=== PATIENT | female | born 1940 | race Caucasian/White ===

== ENCOUNTER 2016-09-20 12:08 | Outpatient (CLI) | payer MEDICARE, BC ==
[~2016-09-20] VITALS: Ht 157.5 cm; Wt 50.4 kg
--- NOTE | ~2016-09-20 | OR ---
PATIENT'S NAME: JAYSON BROWN [facility] AGE: 76 Y [address] ROOM: [id number] [place], [place] [address] LOCATION: GPCU ADMIT DATE: 09/20/2016 OR/Procedure Report DISCHARGE DATE: 09/20/2016 FAMILY PHYSICIAN: Cam Portillo MD ATTENDING PHYSICIAN: Ez Vergara SURGEON: Ez Vergara MD INSPECTOR MATERIAL DISPOSITION: DATE OF PROCEDURE: 09/20/2016 PREOPERATIVE DIAGNOSIS: Severe life-limiting claudication of both lower extremities. PROCEDURE: Aortogram with bilateral lower extremity runoff. SFA and popliteal atherectomy and balloon angioplasty with drug-coated balloon on the right. CAT DRIVER: laborer electroplating staff. ESTIMATED BLOOD LOSS: 25 mL. OPERATIVE FINDINGS: Complete occlusion of the right SFA which was recanalized at the end of case. DESCRIPTION OF PROCEDURE: The patient was brought to the labor and employment paralegal and placed supine on the labor and employment paralegal table, prepped and draped in a sterile manner. Preoperative time-out was performed. The patient received preoperative antibiotics. We gained access via the left groin. We used ultrasound guidance followed by infusion of local anesthetic. We then used a micropuncture kit to gain access to the common femoral artery, exchanged using Seldinger technique for a 5-Sinhala short sheath. We went up in the aorta using 0.035 Glidewire and Omni Flush catheter and performed an aortogram, showed patent renal vessels, distal aorta, common and external iliac, as well as internal iliac arteries. We went up and over the aortic bifurcation, parked our catheter in the common femoral on the right and we performed an angiogram of the right lower extremity. This showed a complete occlusion of the distal SFA popliteal region with recanalization of the distal popliteal with patent TP trunk with peroneal and posterior tibial vessels patent with an occluded anterior tibial. We exchanged over [employer] Torque wire for a 6-Sinhala Destination sheath. We gave 5000 units of heparin which was reversed with protamine at the end of case. We were able to cross the lesion with an 0.035 Glidewire as well as a TrailBlazer catheter. We then exchanged for a #5 Spider device to protect from embolism. We then used a TurboHawk device to perform an atherectomy of the SFA popliteal region removing significant amount of plaque burden. We then balloon angioplastied with 5 x 120 and then a 5 x 60 drug-eluting balloon with complete recanalization of the SFA. After PATIENT'S NAME: JAYSON BROWN [facility] AGE: 76 Y [address] ROOM: [id number] [place] [address] LOCATION: [facility] ADMIT DATE: 09/20/2016 OR/Procedure Report DISCHARGE DATE: 09/20/2016 FAMILY PHYSICIAN: Cam Portillo MD ATTENDING PHYSICIAN: Ez Vergara completing the angioplasty of the SFA, we brought our sheath back to the common femoral on the left. We performed an angiogram of the left lower extremity showing a high-grade left superficial femoral artery stenosis and then a similar occlusion of the anterior tibia, but both PT and peroneal runoff. Sheath was removed. Pressure was held for 15 minutes. Protamine was used to reverse the heparin. The patient tolerated the procedure well, will come back for left SFA angioplasty at a later date. EZ VERGARA MD FKM/modl /[id number] d: 09/20/16 2313 t: 09/24/16 1042, OPERATIVE SUMMARY
[~2016-09-20 12:08] MED LIST: BENTYL10 MG PO; LOMOTIL 2.5-0.1 EACH PO; NORVASC2.5 MG PO; PHENOBARBITAL16.2 MG PO; TENORMIN50 MG PO; VITAMIN B-121000 MCG PO; WELCHOL 625MG625 MG PO
[2016-09-20 12:50] LABS: BASOPHIL # 0.1 K/uL (0.0-0.2); BASOPHIL % 0.7 %; EOSINOPHIL # 0.2 K/uL (0.0-0.5); EOSINOPHIL % 1.6 %; HEMATOCRIT 40.4 % (33.0-46.0); HEMOGLOBIN 13.2 g/dL (10.0-15.0); IMMATURE GRANULOCYTE % 0.3 %; LYMPHOCYTE # 2.6 K/uL (0.8-4.0); LYMPHOCYTE % 24.3 %; MCH 30.3 pg (27.0-34.0); MCHC 32.7 gm/dL (32.0-36.5); MCV 92.9 fl (83.0-98.0); MONOCYTE # 0.5 K/uL (0.0-1.0); MONOCYTE % 4.9 %; NEUTROPHIL # (ANC) 7.3 K/uL (1.8-7.8); NEUTROPHIL % 68.2 %; NRBC % 0 /100WBC (0-0.00); PLATELET COUNT 208 K/uL (150-450); RBC 4.35 M/uL (3.50-5.50); RDW-CV 12.9 % (11.9-14.6); WBC 10.7 K/uL (4.0-11.0)
[2016-09-20 13:07] LABS: ANION GAP 12.8 (10.0-19.0); CALCIUM 9.3 mg/dL (8.5-10.5); POTASSIUM 3.8 mMol/L (3.7-5.1); TOTAL BILIRUBIN 0.6 mg/dL (0.0-1.5); TOTAL PROTEIN 7.1 g/dL (6.0-8.4)
[2016-09-20] MEDS ORDERED: PLAVIX75 MG PO (17:37)
== END 2016-09-20 21:10 | disposition disaster alternative care site (69) ==
LOC: GCAT 12:08 → GPCU 12:08 → GCAT 21:10
PROVIDERS: Surgery Vascular Surgery
PROC: B41G1ZZ Fluoroscopy of Left Lower Extremity Arteries using Low Osmolar Contrast (ICD-10-PCS; principal; 2016-09-20)
PROC: B41F1ZZ Fluoroscopy of Right Lower Extremity Arteries using Low Osmolar Contrast (ICD-10-PCS; principal; 2016-09-20)
PROC: 04CM3ZZ Extirpation of Matter from Right Popliteal Artery, Percutaneous Approach (ICD-10-PCS; principal; 2016-09-20)
PROC: B4101ZZ Fluoroscopy of Abdominal Aorta using Low Osmolar Contrast (ICD-10-PCS; principal; 2016-09-20)
DX: I70.213 Atherosclerosis of native arteries of extremities with intermittent claudication, bilateral legs (principal); K91.1 Postgastric surgery syndromes; E78.5 Hyperlipidemia, unspecified; G62.9 Polyneuropathy, unspecified; I10 Essential (primary) hypertension; K21.9 Gastro-esophageal reflux disease without esophagitis; Z90.3 Acquired absence of stomach [part of]; Z79.899 Other long term (current) drug therapy
CPT/HCPCS: C1714; C1725; C1769; C1884; C1887; J1644; J2001; J2250; J2720; J3010; J7030

== ENCOUNTER 2016-09-27 11:59 | Inpatient (IN) | payer MEDICARE, BC ==
[~2016-09-27] VITALS: Ht 157.5 cm; Wt 54.5 kg
--- NOTE | ~2016-09-27 | CON ---
[facility] 76 [facility] [address] ROOM: [place] [address] [facility] ADMIT DATE: 09/27/2016 Consultation DISCHARGE DATE: FAMILY PHYSICIAN: Cam Portillo MD ATTENDING PHYSICIAN: EZ VERGARA REFERRING PHYSICIAN: SIL MACHADO MD CHIEF COMPLAINT: Chest pain. HISTORY OF PRESENT ILLNESS: A 76-year-old lady with a past medical history of severe peripheral arterial disease, status post bilateral superficial femoral as well as popliteal atherectomy, the left one done today on 09/27/2016, the right one done on 09/20/2016, underwent this procedure today; and postoperatively, she did develop some chest pressure, which was located in the back of her shoulder and then radiated to the front-side without radiation to the shoulders, felt like somebody sitting on her chest, associated with nausea, anxiety as well as upset stomach and lasted 5 minutes and went away on its own. On further inquiry, she denied having any PND, leg swelling, or orthopnea. She had been battling with the stomach issues, which does sound like IBS and underwent subtotal gastrectomy back in 1976 and again stomach reconstruction done in 2005. She gets bouts of diarrhea in the morning everyday. She denied having any headache, any trouble with the eyes, any dizziness, any trouble swallowing, any palpitations, or any chest pain at this moment. REVIEW OF SYSTEMS: All other systems reviewed and were negative except what is mentioned in the HPI. PAST MEDICAL HISTORY: 1. Peripheral artery disease, status post bilateral SFA and popliteal atherectomy. 2. Hypertension. 3. IBS. ALLERGIES: THE PATIENT IS ALLERGIC TO PENICILLIN, SULFA, PSEUDOEPHEDRINE, METOPROLOL, CLONIDINE, LISINOPRIL, HYDROCHLOROTHIAZIDE WELL PROCAINE. CURRENT MEDICATIONS: Include: 1. Amlodipine 2.5 mg p.o. every morning. 2. Atenolol 50 mg p.o. twice daily. 3. Plavix 37.5 mg p.o. everyday. [facility] 76 [facility] [address] ROOM: [place] [address] LOCATION: GPCU ADMIT DATE: 09/27/2016 Consultation DISCHARGE DATE: FAMILY PHYSICIAN: Cam Portillo MD ATTENDING PHYSICIAN: EZ VERGARA 4. Welchol tablets 625-1250 mg p.o. every morning. 5. Cyanocobalamin 1000 mcg p.o. every 14 days. 6. Dicyclomine 10 mg p.o. 3 times daily p.r.n. 7. Lomotil 2 tablets p.o. everyday p.r.n. 8. Phenobarbital 16.25 mg p.o. everyday p.r.n. SOCIAL HISTORY: Never a smoker. No alcohol or drug abuse. FAMILY HISTORY: Family history significant for diabetes as well as severe vascular disease in dad. PHYSICAL EXAMINATION: VITAL SIGNS: 132/78, 16, afebrile, and 72. GENERAL: In no acute distress. Alert, oriented x3. HEENT: Head: Atraumatic, normocephalic. Eyes: Nonicteric. No pallor. Oropharynx dry mucous membranes. CARDIOVASCULAR: S1 and S2. No murmurs, gallops, or rubs. LUNGS: Clear to auscultation bilaterally. ABDOMEN: Soft, nontender, nondistended. Bowel sounds present. EXTREMITIES: No clubbing, cyanosis, or edema. PSYCH: Normal affect, mood, and speech. NEURO: Cranial nerves 2 through 12 intact. No motor or sensory deficit. MUSCULOSKELETAL: No muscle tenderness or joint swelling noted. LABORATORY DATA: EKG was reviewed, which did reveal ST-depression in anterior as well as inferior leads. Troponin first set was negative. On the BMP, she was found to be hypokalemic with a potassium of 3.6. ASSESSMENT: 1. Uaf-TG-fnvodri elevation myocardial infarction. 2. Peripheral arterial disease. 3. Hypertension. 4. Hypokalemia. 5. Irritable bowel syndrome. PLAN: At this time, we would recommend aspirin, Plavix, beta-rivera, as well as statin. Regarding the dose of statin, it was discussed with the patient, and she agreed to take 1 dose of Lipitor and see how does it affect her bowels because she is very concerned about her bowel movements. Cardiology have already been consulted and agree with that. Based on her troponin levels or chest pain, decision to do a Lexiscan or cath will be contemplated in the PATIENT'S NAME: JAYSON BROWN [facility] AGE: 76 Y [address] ROOM: [place] [address] [facility] ADMIT DATE: 09/27/2016 Consultation DISCHARGE DATE: FAMILY PHYSICIAN: Cam Portillo MD ATTENDING PHYSICIAN: EZ VERGARA morning. Given that she got contrast last week and today as well, we will hydrate her for a potential cath in the morning. Potassium will be replaced. We are going to continue her home Bentyl and other medications. N.p.o. midnight. Thank you for involving us in the care of this patient. MD JUAN ST/radha /[id number] d: 09/28/16 0005 t: 09/29/16 0903, CONSULTATION REPORT
--- NOTE | ~2016-09-27 | CON ---
PATIENT'S NAME: JAYSON BROWN [facility] AGE: 76 Y [address] ROOM: [id number] [place], [place] [address] LOCATION: GPCU ADMIT DATE: 09/27/2016 Consultation DISCHARGE DATE: 10/05/2016 FAMILY PHYSICIAN: Cam Portillo MD ATTENDING PHYSICIAN: Radha Angel DATE OF CONSULTATION: 09/30/2016 REFERRING PHYSICIAN: Keenan Lucio MD REQUESTING PHYSICIAN: Dr. Lucio. REASON FOR CONSULTATION: Multivessel coronary artery disease. HISTORY OF PRESENT ILLNESS: The patient is a very pleasant 76-year-old white female with known severe peripheral vascular disease, who was undergoing an outpatient procedure with Dr. De La Cruz consisting of the left lower extremity angiogram SFA with angioplasty, who had a sudden new onset episode of atrial fibrillation with rapid ventricular response. She was experiencing chest pressure/pain. She was admitted. She was seen by Cardiology. She converted to normal sinus rhythm in a fairly quick manner but then subsequently had a 5-second pause. Dr. Lucio evaluated the patient's EKG and she was found to be in a setting of a recent non-STEMI myocardial infarction. She underwent a catheterization study with Dr. Lucio on 09/29/2016. Findings were for proximal right coronary artery disease at 75% in the midportion followed by a distal occlusion at 70%. There was no identified left main disease that was significant. To the LAD is 70%-80% stenosis. On the same marginal at 75% and a second marginal at 70%. The patient underwent an echocardiogram with an ejection fraction noted at 60% and no valvular defects noted. Given the findings, Dr. Lucio asked Dr. Espinoza to see the patient in consultation for surgical revascularization. PAST MEDICAL HISTORY: Illnesses: Irritable bowel syndrome, severe peripheral vascular disease, peripheral neuropathy, osteoarthritis, GERD, dumping syndrome, bleeding ulcers/GI bleed, hypertension, dyslipidemia. Surgeries/procedures: Stomach reconstruction surgery, right SFA angiogram, bilateral cataract surgery, bilateral blepharoplasty, right carpal tunnel surgery, appendectomy, cholecystectomy, subtotal gastrectomy, total abdominal hysterectomy, breast biopsy, popliteal arthrectomy. ALLERGIES: PENICILLIN, SULFA, PSEUDOEPHEDRINE, METOPROLOL, CLONIDINE, LISINOPRIL PATIENT'S NAME: JAYSON BROWN [facility] AGE: 76 Y [address] ROOM: [id number] [place], [place] [address] LOCATION: GPCU ADMIT DATE: 09/27/2016 Consultation DISCHARGE DATE: 10/05/2016 FAMILY PHYSICIAN: Cam Portillo MD ATTENDING PHYSICIAN: Radha Angel HYDROCHLOROTHIAZIDE, AND PROCAINE. IT SOUNDS LIKE MOST OF THESE ARE INTOLERANCES RATHER THAN TRUE ALLERGIES, HOWEVER, IT IS DIFFICULT TO PIN DOWN THE TRUE PROBLEM. SOCIAL HISTORY: The patient is . She and her reside in [place], [place]. She has grown children. She is a lifetime nonsmoker and non-alcohol consumer. She is retired as an office nurse. FAMILY HISTORY: Significant for both coronary artery disease and peripheral vascular disease. MEDICATIONS: 1. Amlodipine 2.5 mg daily. 2. Atenolol 50 mg daily. 3. Plavix 37.5 mg daily. 4. Welchol 625 to 1250 mg daily. 5. Cyanocobalamin 1000 mcg p.o. every 14 days. 6. Dicyclomine 10 mg p.o. up to three times a day/p.r.n. 7. Lomotil 2 tablets p.o. daily/p.r.n. 8. Phenobarbital 16.25 mg p.o. daily/p.r.n. SYSTEM REVIEW: A 10-point review of systems was reviewed and negative other than the pertinent positives as per HPI. PHYSICAL EXAMINATION: VITAL SIGNS: Blood pressure 166/80, pulse is 68, respirations 16, O2 saturations 92% on room air. Height is 157.48 cm. Weight is 52.1 kg. GENERAL: She is very pleasant. She is in no acute distress. HEENT: Normocephalic with EOMIs intact. Conjunctivae clear. NECK: Trachea midline with no palpable lymphadenopathy or thyromegaly. LUNGS: Clear to auscultation on the anterior bilaterally. CARDIOVASCULAR: Regular rate and rhythm. ABDOMEN: Soft, nontender by 4 quadrants with positive bowel sounds throughout. EXTREMITIES: No overt varicosities or edema. MUSCULOSKELETAL: Good range of motion to bilateral upper and lower extremities. NEUROLOGIC: Alert and oriented x3. SKIN: No suspicious skin lesions. LAB AND TEST RESULTS: Per HPI. PATIENT'S NAME: JAYSON BROWN [facility] AGE: 76 Y [address] ROOM: [id number] [place] [address] LOCATION: GPCU ADMIT DATE: 09/27/2016 Consultation DISCHARGE DATE: 10/05/2016 FAMILY PHYSICIAN: Cam Portillo MD ATTENDING PHYSICIAN: Radha Angel IMPRESSION: 1. Multivessel coronary artery disease. 2. Recent ncm-ZI-[id number] myocardial infarction. 3. Severe peripheral vascular disease. 4. Severe irritable bowel syndrome. Dr. Espinoza spoke to the patient and her family with regard to surgical revascularization. Risks and benefits of the procedure were discussed. Discussion of the risks includes, but were not limited to, bleeding, requiring transfusion, return to the operative suite, myocardial infarction, cerebrovascular accident, renal and/or pulmonary failure. Also, discussed were arrhythmias, infection, as well as operative and postoperative mortality. Per the review of the catheterization films, the patient will require 4 vessels, this to the RCA, LAD, and cuff marginals. The patient is significantly worried about the lack of control from her bowels and how this may affect her surgery. At this point, we will plan on placing a Flexi-Seal prior to the patient going down to the operative suite as to relieve her worry with regard to the bowels. The patient's questions have been asked and answered to her satisfaction. We would like to thank Dr. Lucio for allowing us to participate in the care of this very pleasant woman. ANIYA BOJORQUEZ APRN FOR [place] ESPINOZA, DO CHARLESQ/modl /[id number] d: 10/06/16 1848 t: 10/10/16 1234, CONSULTATION REPORT
--- NOTE | ~2016-09-27 | DS ---
PATIENT'S NAME: JAYSON BROWN [facility] AGE: 76 Y [address] ROOM: [address] [place], [place] [address] LOCATION: GPCU ADMIT DATE: 09/27/2016 Discharge Summary DISCHARGE DATE: 10/05/2016 FAMILY PHYSICIAN: Cam Portillo MD ATTENDING PHYSICIAN: Radha Angel [facility] COURSE: The patient is a 76-year-old white female, who was undergoing an outpatient procedure with Dr. De La Cruz on September 27, 2016, consisting of a left lower extremity angiogram and SFA angioplasty secondary to severe claudication of the left lower extremity. The procedure was successful; however, at the conclusion of the procedure, the patient developed chest pain and went into new onset atrial fibrillation with rapid ventricular response as well as a 5-second sinus pause. She was admitted and evaluated by Cardiology. It seems she had a recent non-STEMI myocardial infarction for which she was not aware. She underwent cardiac catheterization. The patient was seen in consultation for coronary artery bypass grafting and on September 30, 2016, underwent coronary artery bypass grafting x4 vessels consisting of a left internal mammary artery bypass to the LAD, reverse saphenous vein graft bypass to the posterior descending artery, reverse saphenous vein graft bypass to the posterior lateral septal branch, and a reverse saphenous vein graft to the obtuse marginal. The patient tolerated the surgery without complication and transferred up to the ICU postoperatively. She remained intubated for a short period postop, but did extubate without complication on the same operative day. On postoperative day 1, the patient was found stable to transfer to the progressive care floor; therefore, her lines and drips were discontinued. She was started on Epogen and iron for acute blood loss anemia. The patient remained on aspirin and Plavix given her peripheral vascular disease and recent coronary artery bypass grafting. The patient does have a significant history of irritable bowel syndrome with previous surgery, previous dumping syndrome. The patient is refusing to take aspirin. We have had multiple disciplines speak to her with regard to this. 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 The patient's chest tubes, pacemaking wires, and Leo catheter were discontinued in the routine postoperative timeframe. The patient did not have any complications with postoperative atrial fibrillation. Her pain was well managed throughout the hospital stay. She continued to follow with Cardiology, Vascular Surgery, Hospitalist Services, and cardiothoracic Surgery until appropriate for discharge to home. The patient worked with Care Management for options for discharge. The patient did not require a skilled stay nor did she desire home health care services at the time of discharge. She was managing quite well with ambulation, and by 10/05/2016, she was discharged to home. DISCHARGE ORDERS: Include a cardiac prudent diet. Activity levels as per the open heart surgery discharge summary sheet, which require no pulling, pushing, PATIENT'S NAME: JAYSON BROWN [facility] AGE: 76 Y [address] ROOM: [place] [address] LOCATION: GPCU ADMIT DATE: 09/27/2016 Discharge Summary DISCHARGE DATE: 10/05/2016 FAMILY PHYSICIAN: Cam Portillo MD ATTENDING PHYSICIAN: Radha Angel or lifting greater than 10 pounds for the next 6 weeks or until November 11, 2016. She may shower. She will begin cardiac rehab and outpatient therapy. The patient is to follow with Dr. Lucio, Dr. De La Cruz, and Dr. Espinoza in 2 weeks on the same day, and we will arrange. She is to follow up with the primary care provider, Dr. Portillo in 4 weeks. FINAL DIAGNOSES: Include, 1. Coronary artery disease, non-ST segment myocardial infarction. 2. Severe peripheral vascular disease. 3. Atrial fibrillation with rapid ventricular response. 4. History of dumping syndrome. 5. Irritable bowel syndrome. DISCHARGE MEDICATIONS: 1. Atenolol 50 mg b.i.d. 2. Welchol 625 to 1250 mg daily. 3. Vitamin B12 of 1000 mcg every 14 days. 4. Lomotil 2 tablets every day p.r.n. diarrhea. 5. Bentyl 10 mg t.i.d./p.r.n. diarrhea. 6. Phenobarbital mg oral tablets as needed p.r.n. diarrhea. 7. Norvasc 2.5 mg daily. 8. Plavix 75 mg daily. 9. Amiodarone 200 mg twice a day. 10. Lipitor 20 mg at bedtime. 11. Aspirin 81 mg daily. 12. Iron 325 mg twice a day. 13. Lasix 40 mg daily. 14. Potassium chloride 10 mEq 2 tablets twice a day. 15. [place] 5/325, 1 to 2 every 4 to 6 hours as needed. The patient and spouse verbalized understanding of the discharge orders. The patient discharged to home in stable condition. ANIYA BOJORQUEZ APRN FOR [place] ESPINOZA DO DLQ/modl /[id number] d: 10/22/16 0645 t: 10/24/16 1532, DISCHARGE SUMMARY
--- NOTE | ~2016-09-27 | CON ---
[facility] AGE[facility] 76 Y [address] ROOM: [place] [address] LOCATION: GPCU ADMIT DATE: 09/27/2016 Consultation DISCHARGE DATE: FAMILY PHYSICIAN: Cam Portillo MD ATTENDING PHYSICIAN: JUVENCIO DE LA CRUZ DATE OF CONSULTATION: 09/27/2016 REFERRING PHYSICIAN: SIL MACHADO MD CARDIOLOGY CONSULTATION REASON FOR CARDIOLOGY CONSULTATION: Chest pain and new-onset atrial fibrillation. HISTORY OF PRESENT ILLNESS: This is a 76-year-old female admitted as an outpatient for Dr. De La Cruz for an angiogram of the left SFA. During her procedure, she had a new onset of atrial fibrillation with controlled ventricular rate with a max rate of about 100. She did subsequently convert back to a sinus rhythm shortly after the initial atrial fibrillation, but did convert with a 5-second sinus pause which did correlate with some intense chest pain and pressure which she describes as a "bubble." She states the pain radiated from her back and was a very unfamiliar symptom. A 12-lead EKG evaluation during her chest pain episode showed ST depressions of 1 mm in leads V2 through V6. She denies any presyncope or syncope. She also denies palpitations, nausea or vomiting or diaphoresis. At the time of her physical evaluation, her symptoms have resolved and she has no further complaints at this time. She does have an extensive health history of gastric difficulties including GI bleeding. She was diagnosed with a gastric dumping syndrome and has had stomach reconstruction. Also of note, she has extensive peripheral vascular disease and has had an angiogram to her right SFA already with Dr. De La Cruz, and once again is here today for a left SFA angiogram. PAST MEDICAL HISTORY: 1. Hypertension. 2. Hyperlipidemia. 3. Peripheral vascular disease. 4. Peripheral neuropathy. 5. Gastric dumping syndrome. 6. Colitis and gastritis. 7. GERD. PAST SURGICAL HISTORY: 1. Stomach reconstruction. 2. Cataract surgery. PATIENT'S NAME: [facility] AGE: 76 Y [address] ROOM: [place] [address] LOCATION: GPCU ADMIT DATE: 09/27/2016 Consultation DISCHARGE DATE: FAMILY PHYSICIAN: Cam Portillo MD ATTENDING PHYSICIAN: JUVENCIO DE LA CRUZ 3. Subtotal gastrectomy. 4. Breast biopsy. 5. Total hysterectomy. 6. Cholecystectomy. 7. Appendectomy. 8. Carpal tunnel surgery. FAMILY HISTORY: She states there is some cardiac disease in her family, but is unsure of the full details. SOCIAL HISTORY: The patient denies ever using tobacco. She also denies alcohol or illicit drug use. CURRENT MEDICATIONS: 1. Tenormin 50 mg p.o. twice daily. 2. Lipitor 40 mg p.o. x1 now. MEDICATION ALLERGIES: 1. Penicillin. 2. Sulfa causing headache. 3. Lisinopril, stating "just did not work.". 4. Pseudoephedrine causing tachycardia. 5. Hydrochlorothiazide. 6. Metoprolol causing nightmares. 7. Clonidine causing trouble swallowing and "cotton mouth.". 8. Novocain causing tachycardia during dental work. REVIEW OF SYSTEMS: Pertinent positives listed in the HPI. All other review of systems are evaluated and negative. LABORATORY DATA AND IMAGING STUDIES: Diagnostics: CMS evaluation shows a sodium of 142, potassium 3.6, BUN of 17, creatinine 0.9, and glucose of 96. Cardiac enzyme evaluation shows a CPK of 48, CK-MB of 0.9, and troponin I of less than 0.04. PHYSICAL EXAMINATION: VITAL SIGNS: Temperature 96.9, pulse 74, respirations 16, blood pressure 108/56, and O2 saturation 92% on 2 L nasal cannula. The patient weighs 52.1 kg. SKIN: [place], warm, and dry. EYES: Sclerae clear. No xanthelasmas. ENT: Oral mucosa is pink and moist. No jugular venous distention or carotid PATIENT'S NAME: JAYSON BROWN [facility] AGE: 76 Y [address] ROOM: [address] [address] [facility] ADMIT DATE: 09/27/2016 Consultation DISCHARGE DATE: FAMILY PHYSICIAN: Cam Portillo MD ATTENDING PHYSICIAN: JUVENCIO DE LA CRUZ bruits. CHEST: Respirations are even and unlabored. LUNGS: Clear to auscultation. HEART: Regular rate and rhythm. Normal S1 and S2. No murmurs, rubs, or gallops. ABDOMEN: Soft and nontender. MUSCULOSKELETAL: Gait is normal. EXTREMITIES: Peripheral pulses palpable. No clubbing, cyanosis, or edema. PSYCHIATRIC: Alert and oriented. Mood and affect are appropriate. IMPRESSION AND PLAN: Per Dr. Machado: 1. Episode of new-onset paroxysmal atrial fibrillation followed by a sinus pause and subsequent conversion to a sinus rhythm. During her pause on conversion to sinus rhythm, she did also have complaints of chest pain which she describes as "bubble" type pressure. 2. Peripheral vascular disease. 3. History of recurrent gastrointestinal bleed. 4. Chest pain. Once again, this is a 76-year-old female, who had a left lower extremity angiogram followed by a brief episode of atrial fibrillation with subsequent ST depressions on EKG during an episode of sinus pause and chest pain. Max pause per telemetry shows about 5 seconds. She did spontaneously convert back to sinus rhythm and has had no recurrent since. She is normally physically active at home. We will continue to trend her cardiac enzymes and get a 2D echocardiogram to fully evaluate her ejection fraction as well as to look for wall motion or valvular abnormalities. We will also plan to proceed with a Lexiscan stress test to fully evaluate myocardial perfusion imaging if her cardiac enzymes remain negative overnight. We will not start her on aspirin due to her history of gastrointestinal bleeding. We will continue to monitor, evaluate, and treat as appropriate. Thank you Dr. Juvencio De La Cruz for this consult. Thank you for allowing [facility] to interact in the care of this patient. HELENA AIKEN APRN FOR MD LAMBERTO COLINDRES/radha PATIENT'S NAME: JAYSON BROWN [facility] AGE: 76 Y [address] ROOM: [id number] [place] [id number] LOCATION: GPCU ADMIT DATE: 09/27/2016 Consultation DISCHARGE DATE: FAMILY PHYSICIAN: Cam Portillo MD ATTENDING PHYSICIAN: JUVENCIO DE LA CRUZ /[id number] d: 09/28/16 1542 t: 10/31/16916, CONSULTATION REPORT
--- NOTE | ~2016-09-27 | ESTC ---
Cardiac Perfusion Imaging Demographics Patient Name KEVIN Toney Gender Female Patient Number [id number] Race Visit Number [id number] Ethnicity Corporate ID Room Number G6335 Accession Number [id number] Height 62 inches Date of 1940 Weight 114.9 pounds Sheldon Canales Star Machado Date of study 09/28/2016 Physician Keenan Supervising /ANIKA PEREZ Technologist Lin Hussein Ordering Physician Naveed Stress Roclaribel Hussein radiation technician RDCS, RVT Stress ECG Reading Naveed Nurse Abhilash Schmidt Physician Keenan Procedure Admit Source:Other. Procedure Type: Nuclear Stress Test:Pharmacological, Lexiscan, Cardiolite Stress Test Procedure Start time: 09/28/2016 08:00 Indications: Chest pain. Risk Factors The patient risk factors include:peripheral arterial disease, treated hypercholesterolemia, treated hypertension, family history of premature CAD appeared at age 71 and dyslipidemia. Conclusions Summary Perfusion Images: The overall quality of the study is fair, due to gastrointestinal tracer uptake. Left ventricular cavity is noted to be normal on the stress and rest studies. TID ratio is 1.14 Stress SPECT images and Rest SPECT images demonstrate homogenous tracer distribution throughout the myocardium except for small size moderate decrease uptake in the area involving the basal septal wall consistent with ischemia. Gated SPECT imaging reveals normal myocardial thickening and wall motion. The left ventricular ejection fraction was calculated to be >70%. Impression ECG portion of the stress test is clinically positive for ischemia by diagnostic criteria. The images reveal a small size moderate severity reversible defect in the basal septal wall consistent with ischemia . Overall left ventricular systolic function was normal. This is a intermediate to high risk stress test due to significant EKG changes with regadenoson. Clinical correlation is recommended Stress Protocols Resting ECG SR at 65 bpm Pre-stress physical exam: Patient assessed by Dr Machado prior to testing. Stress Protocol:Pharmacologic Peak HR:104 bpm HR/BP product:[id number] Peak BP:185/73 mmHg Predicted HR: 144 bpm % of predicted HR: 72 Test duration: 05:00 min Reason for termination:Infusion complete ECG Findings ST depression with T wave inversion inferior and anterolateral leads. EKG changes persisted for over 5 minutes Arrhythmias None Symptoms Chest tightness Stress Interpretation ECG portion of stress test is positive for ischemia by diagnostic criteria. Patient was notified of the results Imaging Results Applied corrections - Motion correction applied High risk findings Summed scores - Summed stress score: 7 - Summed rest score: 6 - Summed difference score: 1 Stress ejection Ejection fraction:83 % EDV :66 ml ESV :11 ml Stroke volume :55 ml LV mass :98 gr Imaging Protocols Rest Stress Isotope:Tc99m Sestamibi IV Isotope: Tc99m Sestamibi IV Isotope dose:10.1 mCi Isotope dose:31.4 mCi Date:09/28/2016 06:34 Date:09/28/2016 08:47 Technique: SPECT Technique: Gated Supine SPECT Supine IV remains in place after procedure. Scan Time:45-60 minutes post Scan Time:45-60 minutes post injection injection Procedure Medications - Regadenoson (Lexiscan) 0.4 mg IV over 10-15 sec. I.V. 0.4 mg. Medical History Admission Data Admission date: 09/27/2016 Admission Time: 15:32 Hospital Status: Inpatient. Signatures dtt: KEENAN MACHADO dtd: 09/28/16 0800 Physician Self Edit
--- NOTE | ~2016-09-27 | OR ---
PATIENT'S NAME: JAYSON VALADEZ [facility] AGE: 76 Y [address] ROOM: [address] [place] [id number] LOCATION: GPCU ADMIT DATE: 09/27/2016 OR/Procedure Report DISCHARGE DATE: 10/05/2016 FAMILY PHYSICIAN: Cam Portillo MD ATTENDING PHYSICIAN: EMILIANA SMITH SURGEON: Shon Sparks DO PRETZEL PACKER: DATE OF PROCEDURE: 09/30/2016 PREOPERATIVE DIAGNOSES: 1. Recent non ST-segment myocardial infarction with history of rapid ventricular response and atrial fibrillation. 2. Severe peripheral vascular disease, status post recent angioplasty. POSTOPERATIVE DIAGNOSES: 1. Recent non ST-segment myocardial infarction with history of rapid ventricular response and atrial fibrillation. 2. Severe peripheral vascular disease, status post recent angioplasty. PROCEDURE: Coronary artery bypass grafting x4, left internal mammary artery bypass to the LAD, reverse saphenous vein bypass of posterior descending artery, reverse saphenous vein bypass to the posterior lateral septal branch and reverse saphenous vein graft to the obtuse marginal. REFERRING PROVIDER: Keenan Lucio MD. BRIEF HISTORY: Ms Valadez is a 76-year-old white female with the above-noted diagnosis. She has been brought to the operative suite today for revascularization. DESCRIPTION OF PROCEDURE: She was sterilely prepped and draped in usual fashion for median sternotomy with lower extremity vein harvest. A sternal incision was made. The sternum was then divided at midline. Ostene and electrocautery were used for hemostasis along the narrow and sternal edges and concurrently to this saphenous vein was harvested endoscopically from the lower extremities. Mammary retractor was placed. The internal mammary artery was harvested in standard fashion utilizing surgical clips and electrocautery. Prior to its division, the patient was fully heparinized. The mammary was then divided and prepared for bypass. Mammary retractor was removed and a sternal retractor was placed. Pericardium was opened. Pericardial well created. Cannulation sutures placed in the ascending aorta and right atrium for bypass and cardioplegia cannulas, and the patient was cannulated and connected to bypass pump without difficulty. The vein was then prepared for bypass. An adequate ACT had been achieved, and cardiopulmonary bypass was now initiated and cross-clamp was applied. Antegrade and retrograde cardioplegia PATIENT'S NAME: JAYSON VALADEZ [facility] AGE: 76 Y [address] ROOM: [address] [place] [id number] LOCATION: GPCU ADMIT DATE: 09/27/2016 OR/Procedure Report DISCHARGE DATE: 10/05/2016 FAMILY PHYSICIAN: Cam Portillo MD ATTENDING PHYSICIAN: EMILIANA SMITH A was given along with topical cold saline cardiac arrest and the heart arrested without difficulty. Posterior descending artery was identified and opened. End-to-side vein graft anastomosed to this in 7-0 Prolene and then sized appropriately connected to the cardioplegia system. Another 500 mL of the vein graft and retrograde cardioplegia was given. This was done after each venous distal anastomosis. Similar venous distal anastomoses were then created to the posterior lateral septal branch and then to the obtuse marginal branch and then the left internal mammary artery was anastomosed to the left anterior descending artery, again in end-to-side fashion with 7-0 Prolene. The bulldog was removed from the mammary artery showing good distal flow down the LAD and the cross-clamp was then removed and a partial occlusion clamp applied. Warm blood was now initiated via the vein grafts and the retrograde cannula and we performed our proximal anastomosis utilizing four punch and 6-0 Prolene. With these performed, the partial occlusion clamp was removed, vein grafts de-aired, bulldog was removed, and distal flow was given. Distal sites were hemostatic. Proximal sites were hemostatic. Warm blood was now discontinued. The retrograde cannula was removed. Ventilations were initiated. Two atrial and one ventricular temporary pacemaking wires were placed and we weaned from cardiopulmonary bypass without difficulty. The venous cannula was removed and appropriate volume returned from the pump to the patient and the ascending aortic cannula was removed. Protamine was given. Copious amounts of antibiotic-infused saline was used to irrigate the sternum and mediastinum. Three chest tubes were placed, one left pleural, one posterior pericardial, one anterior mediastinal. The sternum was then approximated with ZipFix system and soft tissues were closed in a layered fashion utilizing 0 Vicryl, 2-0 Vicryl, and 4-0 Monocryl. The patient tolerated the procedure well and was transferred to the intensive care in stable condition. DO TAJ HERNANDEZ/radha /[id number] d: 10/05/16 1510 t: 10/06/16 0853, OPERATIVE SUMMARY
--- NOTE | ~2016-09-27 | CATH ---
Cardiac Diagnostic Report Demographics Patient Name KEVIN Toney Gender Female Date of 1940 Age 76 year(s) Patient Number [id number] Date of Study 09/29/2016 Visit Number [id number] Room Number G6335 [place] [id number] Ht 157.48 cm Wt 52.1 kg Referring Lindsey Avelar MD Primary Physician Physician Jeanne Mcfarland MD Performing Yerra Secondary Physician Physician Keenan Diagnostic Yerra Assisting Physician Physician Keenan Interventional Physician Mat Gauger Physician Findings and Conclusions Diagnostic Findings and Conclusion Right dominant L Main: distal 20% tapering LAD: Proximal 70%, Mid 40% stenosis Diagonal1: ostial/proximal 70% L Cx: OM1: 50-60% stenosis OM2: 80% stenosis RCA:Proximal 80%, distal 90% diffuse PDA: 40% stenosis PLV: Occluded proximally; receives collaterals from left Findings reviewed with Dr. Sparks Diagnostic Recommendations CABG recommended. Procedure Description The patient was brought to the diagnostic cardiac catheterization-EP laboratory in the fasting, non-sedated state. Informed consent was obtained in the written and verbal form after the risks and benefits were explained. The patient had no further questions and agreed to proceed. The planned puncture-incision site(s) were shaved and prepped with ChloraPrep and draped in the usual sterile manner. Conscious sedation, supplemental oxygen, and pain control medications were delivered by a registered nurse under physician guidance. Surface ECG rhythm, blood pressure measurement, and pulse oximetry were monitored throughout the procedure. Arterial access. The access site on right wrist was infiltrated with lidocaine. The vessel was entered with the Seldinger technique. A sheath was advanced into the vessel and used for catheter placement. Selective left coronary angiography. A catheter was advanced into the left coronary vessel ostium under Fluoroscopic guidance. Contrast was injected by hand. Images were obtained in multiple projections. Selective right coronary angiography. A catheter was advanced into the right coronary vessel ostium under fluoroscopic guidance. Contrast was injected by hand. Images were obtained in multiple projections. Arterial artery hemostasis was achieved. The patient was transferred to a regular nursing floor via cart accompanied by a nurse. The patient left the laboratory in stable condition. Diagnostic Cath Status: Urgent Procedure Procedure Type Diagnostic procedure:Angiography:, Coronary Angios Indications: Abnormal Stress Test and Unstable angina. The procedure was explained in detail to the patient. Risks, complications and alternative treatments were reviewed. Written consent was obtained. Medications Reviewed with Patient prior to Procedure. Angiographic Findings Dominance: Right Cardiac Arteries and Lesion Findings LMCA: Abnormal. Lesion on LMCA: Distal subsection.20% stenosis . Comments:tapering LAD: Abnormal.The 1st Diag appears abnormal. Lesion on Prox LAD: 70% stenosis . Lesion on Mid LAD: 40% stenosis . Lesion on 1st Diag: Ostial.70% stenosis . LCx: Normal (0% Stenosis).The 1st ob Marie appears abnormal. The 2nd ob Marie appears abnormal. Lesion on 1st Ob Marie% stenosis . Lesion on 2nd Ob Marie% stenosis . RCA: Abnormal. Lesion on Prox RCA: 80% stenosis .The lesion was diffuse. Lesion on Dist RCA: 90% stenosis .The lesion was diffuse. Lesion on 1st RPL: 100% stenosis . Lesion on R PDA: 40% stenosis .The lesion was diffuse. Cardiac Collaterals - collateral flow from the Dist CX to the 1st RPL. Coronary Tree Procedure Data Procedure Date Date: 09/29/2016Start: 10:25 AMEnd: 11:29 AM Entry Locations - Retrograde Percutaneous access was performed through the Right Femoral artery (Primary location). A 6 Fr sheath was inserted. Unsuccessful closure attempt was performed using: an R band. Hemostasis was successfully obtained using Mechanical Compression. Closure Comments: jarrod placed band 17 ml air. Procedure Medications Order and Administration + + + + + !Time !Medication !Dosage !Route ! + + + + + !09/29/2016 10:21 AM !Versed !0.5 mg !I.V. ! + + + + + !09/29/2016 10:22 AM !Fentanyl !25 mcg !I.V. ! + + + + + !09/29/2016 10:26 AM !Versed !0.5 mg !I.V. ! + + + + + !09/29/2016 10:30 AM !Radial Verapamil !1.25 mg !I.A. ! + + + + + !09/29/2016 10:30 AM !Radial Nitroglycerin !200 mcg !I.A. ! + + + + + !09/29/2016 10:36 AM !Heparin (ACC_3) !3000 units !I.V. bolus ! + + + + + Devices Used - A5 Fr. BS JR 4 Diag. Catheterwas used for:Was not used. - A5 Fr. BS JR 4 Diag. Catheterwas used for:Right coronary angiography. - A5 Fr. BS JL 3.5 Diag. Catheterwas used for:Left coronary angiography. Contrast Material - Isovue 53632 ml Fluoroscopy Time: Diagnostic: 4:06 minutes. Total: 4:06 minutes. Fluoroscopy Dose: Diagnostic: 519 mGy. Total: 519 mGy. Estimated Blood Loss: 10 ml. Medical History Performed Procedures and Imaging Results - Stress testing with SPECT MPIwas performed on 09/26/2016. Results were: Positive. Risk/Extent of ischemia was: Unavailable. Allergies - Penicillin. - Sulfa. - Other:(lisinopril, pseudoephedrine, metoprolol, clondine, hydrochlorothriazide). - Sulfa. - Other:(catapres). - Other:(metoprolol). - Other:(sudafed). - Penicillin. - Other:(lisinopril). - Other:(HCTZ). - Other:(lidocaine). Risk Factors The patient risk factors include:peripheral arterial disease, treated hypercholesterolemia, treated hypertension, family history of premature CAD appeared at age 71, last creatinine: 1 mg/dl, creatinine clearance: 39.36 ml/min and dyslipidemia. Admission Data Admission Date: 09/27/2016 Admission Time: 03:32 PM Admit Source: Other Insurance Payors: Medicare. Admission Medications + +------+------+ + + + + !Medication !Dosage!Times !Last !Last !Administered !Comments ! ! ! !Per !Delivery !Delivery ! ! ! ! ! !Day !Date !Time ! ! ! + +------+------+ + + + + !Aspirin ! ! ! ! !Yes ! ! !(any) ! ! ! ! ! ! ! + +------+------+ + + + + !Statin (any)! ! ! ! !Yes ! ! + +------+------+ + + + + !Beta Jose! ! ! ! !Yes ! ! !(any) ! ! ! ! ! ! ! + +------+------+ + + + + !Clopidogrel ! ! ! ! !Yes ! ! + +------+------+ + + + + Clinical Evaluation Leading to Procedure - The patient's CAD presentation was assessed as: Unstable angina. 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 Anti-anginal medications were prescribed during the past two weeks. The medication is: Beta Blockers. Hemodynamics Condition: Rest O2 Consumption: Estimated: 136.63Heart Rate: 69 bpm Pressures (mmHg) +-----+ + !Site !Pressure ! +-----+ + !AO !143/64 (99) ! +-----+ + !LV !168/-14 ,9 ! +-----+ + !AO !145/61 (94) ! +-----+ + Shunts Oxygen Values O2 Capacity 159.12 O2 Consumption 136.63 Signatures dtt: KEENAN MACHADO dtd: 09/29/16 1025 Physician Self Edit
--- NOTE | ~2016-09-27 | OR ---
PATIENT'S NAME: JAYSON BROWN [facility] AGE: 76 Y [address] ROOM: [place] [address] LOCATION: GPCU ADMIT DATE: 09/27/2016 OR/Procedure Report DISCHARGE DATE: 10/05/2016 FAMILY PHYSICIAN: Cam Portillo MD ATTENDING PHYSICIAN: Radha Angel SURGEON: Shaun Moran MD LEADED GLASS INSTALLER: DATE OF PROCEDURE: 09/30/2016 INDICATION FOR PROCEDURE: Intraoperative hemodynamic monitoring and access. PROCEDURE: After a brief time-out was completed verifying the correct patient, procedure, and site, the patient was placed in the dependent position appropriate for central line placement. The patient's right neck prepped and draped in the usual sterile fashion. Using the Seldinger technique and under real-time ultrasound guidance, a 9-Kenyan 10 cm catheter was introduced through the internal jugular vein. The guidewire then was removed. Each lumen of the catheter was evacuated from air and then flushed with sterile saline. The catheter was sutured in place. A sterile Tegaderm was applied. Next, the patient's left breast prepped and draped in the usual sterile fashion. 1 mL of 1% lidocaine to anesthetize the surrounding skin. A 20- gauge Arrow catheter was inserted into the patient's left radial artery. The guidewire then was removed. A pulsatile waveform did ensue on the monitor. The catheter then was sutured in place and sterile Tegaderm was applied. Pulses distal to the insertion of the catheter was checked and found to be adequate. The patient tolerated the above procedures well, had no procedural complications. MD GIOVANNI RENDON/radha /[id number] d: 10/05/161927 t: 10/13/16 1707, OPERATIVE SUMMARY
--- NOTE | ~2016-09-27 | ECHO ---
Transthoracic Echocardiography Report (TTE) Demographics Patient Name JAYSON BROWN Date of Study 09/28/2016 Patient Number [id number] Visit Number [id number] Date of 1940 Room Number G6335 Accession Number [id number] Gender Female Age 76 year(s) Referring Lindsey Avelar MD Online Banking Specialist Elijah Zhu Physician Sheldon Henning MD Physician Interpreting Karthikeyanuguntla Melissa Leather Carver Physician Supervising Ordering Physician Sheldon Canales MD/ANIKA DUE DILIGENCE COORDINATOR Nurse Stress Speech Communication Professor Conclusions Contractility Score Summary Normal Left Ventricular contractility was noted. Summary Normal LV/RV size and systolic function. The estimated left ventricular ejection fraction is 55%. Mild septal left ventricular hypertrophy. Mild left atrial enlargement. Diastolic assessment reveals Grade II pseudonormal diastolic function . No significant valvular abnormalities. No evidence of pericardial effusion. Procedure Type of Study TTE procedure:2D Echocardiogram, M-Mode, Doppler , Color Doppler. Procedure Date Date: 09/28/2016 Start: 01:20 PM Study Location: Inpatient Portable Technical Quality: Adequate visualization Indications:Chest pain and Abnormal ECG. Appropriate Use Criteria: 9 Patient Status: Routine HR: 72 bpm BP: 164/70 mmHg Allergies - Penicillin. - Sulfa. - Other:(lisinopril, pseudoephedrine, metoprolol, clondine, hydrochlorothriazide). - Sulfa. - Other:(catapres). - Other:(metoprolol). - Other:(sudafed). - Penicillin. - Other:(lisinopril). - Other:(HCTZ). - Other:(lidocaine). M-Mode/2D Measurements LV Diastolic Dimension: 4.04 cm LV Systolic Dimension: 3 cm LV Septum Diastolic: 1.23 cm LV PW Diastolic: 0.52 cm AO Root Dimension: 2.1 cm Cardiac Output: 4.23 l/min LA Dimension: 2.9 cm EF Estimated: 55 % LVOT: 1.8 cm LVOT VTI: 23.1 cm RV Base: 2.29 cm LV Stroke volume: 58.75 ml RV Length: 5.34 cm TAPSE: 2.51 cm TDI-S': 12.5 cm/s Doppler Measurements AV Peak Velocity: 1.36 m/s MV Peak E-Wave: 1.08 m/s AV Peak Gradient: 7.4 mmHg MV Peak A-Wave: 0.88 m/s AV Mean Gradient: 5 mmHg MV E/A Ratio: 1.22 LVOT Peak Velocity: 1.07 m/s MV P1/2t: 58 msec TR Gradient:6.76 mmHg PV Peak Velocity: 1.15 m/s Estimated RAP:8 mmHg PV Peak Gradient: 5.29 mmHg Estimated RVSP: 15 mmHg Estimated PASP: 14.76 mmHg E' Septal Velocity: 0.07 m/s A' Septal Velocity: 0.1 m/s E' Lateral Velocity: 0.09 m/s A' Lateral Velocity: 0.11 m/s Findings Left Ventricle The left ventricle is normal in size . Mild septal left ventricular hypertrophy. Diastolic assessment reveals Grade II pseudonormal diastolic function . Right Ventricle Normal right ventricle structure and function. Left Atrium Mild left atrial enlargement. Right Atrium Normal right atrial size. IVC measures 1.38 cm with inspiratory collapse. Mitral Valve Normal mitral valve structure and function. Aortic Valve The aortic valve is mildly sclerotic. Tricuspid Valve Trivial tricuspid regurgitation by color Doppler. Pulmonic Valve Normal pulmonic valve structure and function. Pericardial Effusion No evidence of pericardial effusion. Miscellaneous Visualized portions of the aortic root and ascending aorta appear normal in size. Pleural Effusion No evidence of pleural effusion. Contractility Score LV regional wall motion:(0-Non visualized 1-Normal 2-Hypokinesis 3-Akinesis 4-Dyskinesis 5-Aneurysm) Signature dtt: MELISSA RODRIGUEZ dtd: 09/28/16 1320 Physician Self Edit
--- NOTE | ~2016-09-27 | OR ---
PATIENT'S NAME: JAYSON BROWN [facility] AGE: 76 Y [address] ROOM: [address] [address] LOCATION: GPCU ADMIT DATE: 09/27/2016 OR/Procedure Report DISCHARGE DATE: FAMILY PHYSICIAN: Cam Portillo MD ATTENDING PHYSICIAN: JUVENCIO VERGARA SURGEON: Juvencio Vergara MD BEHAVIORAL ASSISTANT: DATE OF PROCEDURE: 09/27/2016 PREOPERATIVE DIAGNOSIS: Severe claudication of the left lower extremity. POSTOPERATIVE DIAGNOSIS: Severe claudication of the left lower extremity. PROCEDURE: Left lower extremity angiogram and SFA angioplasty. ZOOLOGY TEACHER: Yash. ANESTHESIA: MAC local. ESTIMATED BLOOD LOSS: 10 mL. OPERATIVE FINDINGS: Relief of the stenosis of the SFA. COMPLICATION: The patient has developed chest pain postprocedure and went into atrial fibrillation, which was new onset for her, and had to be admitted for cardiac evaluation. DESCRIPTION OF PROCEDURE: The patient was brought to laboratory technologist, placed supine on the laboratory technologist table, prepped and draped in a sterile manner. Preoperative time-out was performed. The patient received preoperative antibiotics in the form of clindamycin. We gained access via the right groin using ultrasound guidance, using micropuncture needle, followed by micropuncture wire, after infiltrating the skin with 1% lidocaine. We then exchanged using Seldinger technique for a 5-Monegasque short sheath. We went up in the aorta with a 0.035 Glidewire as well as Omni Flush catheter, went over the aortic bifurcation, parked our catheter in the common femoral artery. We then passed a Magic Torque wire through the catheter, we removed it, removed the 5-Monegasque sheath, then placed a 6-Monegasque Destination sheath. We then gave 5000 units of heparin. We then proceeded to balloon angioplasty with a 5 x 80 EverCross balloon and then completed with a 5 x 80 drug-eluting balloon. We removed the wire and the devices. We were able to deploy a 6-Monegasque Angio-Seal to close the groin. After completing the procedure, the patient then developed chest pain and required cardiac evaluation. From a peripheral standpoint, her procedure was successful. PATIENT'S NAME: JAYSON BROWN [facility] AGE: 76 Y [address] [address] LOCATION: GPCU ADMIT DATE: 09/27/2016 OR/Procedure Report DISCHARGE DATE: FAMILY PHYSICIAN: Cam Portillo MD ATTENDING PHYSICIAN: JUVENCIO VERGARA JUVENCIO VERGARA MD FKM/modl /[id number] d: 09/27/16 2329 t: 10/03/16 1508, OPERATIVE SUMMARY
--- NOTE | ~2016-09-27 | ENPV ---
Vascular Lower Extremity Vein Mapping Procedure Demographics Patient Name JAYSON BROWN Date of Study 09/29/2016 Patient Number [id number] Gender Female Date of 1940 Age 76 Visit Number [id number] Height 62 Accession Number [id number] Weight 114.86 Referring Bridger Avelar DO Interpreting Jono Henning MD Physician Lindsey Avelar MD Physician Jeanne Mcfarland MD Physician Ordering Physician Bridger Avelar Computer Systems Technician DO Liquid Chlorine Operator Ashlyn Villasenor RVT Conclusions Summary No evidence of superficial thrombophlebitis in the bilateral lower extremities. Unable to visualize the right greater saphenous vein from the distal thigh to the ankle. Procedure Type of Study: Veins:Lower Extremity Vein Mapping, Vein Map Bilat DANIELLE. Indications for Study:Pre-op CABG. Appropriate Use Criteria:9 Allergies - Penicillin. - Sulfa. - Other:(lisinopril, pseudoephedrine, metoprolol, clondine, hydrochlorothriazide). - Sulfa. - Other:(catapres). - Other:(metoprolol). - Other:(sudafed). - Penicillin. - Other:(lisinopril). - Other:(HCTZ). - Other:(lidocaine). Patient Status:Routine. Study Location:Inpatient Portable. Technical Quality:Adequate visualization. Risk Factors - The patient's risk factor(s) include: dyslipidemia and treated arterial hypertension. - The patient's last creatinine was 1 mg/dl. Velocities are measured in cm/s ; Diameters are measured in cm + ++--------++--------+ !Superficial - Great Saphenous Vein !!Right !!Left ! + ++--------++--------+ !Location !!Diameter!!Diameter! + ++--------++--------+ !Sapheno Femoral Junction !!0.39 !!0.73 ! + ++--------++--------+ !GSV High Thigh !!0.22 !!0.31 ! + ++--------++--------+ !GSV Mid Thigh !!0.15 !!0.19 ! + ++--------++--------+ !GSV Low Thigh !! !!0.2 ! + ++--------++--------+ !GSV Knee !! !!0.2 ! + ++--------++--------+ !GSV High Calf !! !!0.21 ! + ++--------++--------+ !GSV Mid Calf !! !!0.18 ! + ++--------++--------+ !GSV Low Calf !! !!0.25 ! + ++--------++--------+ Signature dtt: EZ VERGARA: 09/29/16 1349 Physician Self Edit
[~2016-09-27 11:59] MED LIST changes: +PLAVIX75 MG PO
[2016-09-27 15:26] LABS: ANION GAP 12.6 (10.0-19.0); BLOOD UREA NITROGEN 17 mg/dL (6-24); CALCIUM 8.9 mg/dL (8.5-10.5); CHLORIDE 106 mMol/L (96-110); CO2 27 mMol/L (22-32); CPK 48 IU/L (21-215); CREATININE 0.9 mg/dL (0.5-1.1); ESTIMATED GFR (MDRD EQUATION) > 60; POTASSIUM 3.6 mMol/L (3.7-5.1); SODIUM 142 mMol/L (135-145)
--- NOTE | 2016-09-27 19:13 | NUR ---
Significant Event: ALERT & ORIENTED X3. DENIES PAIN. VSS. WEANED TO 1L O2 NC. LUNGS CLEAR. RIGHT GROIN ANGIO SITE WITH GAUZE AND TRANSPARENT, C/D/I. SITE SOFT, NON-TENDER. BILATERAL TIBIAL PULSES DOPPLERED, UNABLE TO DOPPLE PEDAL PULSES. RIGHT HAND PIV WITH NS @ 75 ML/HR X24 HOUR. KCL 40 MEQ IV X1 CURRENTLY INFUSING FOR K+ OF 3.6. INITIAL SET OF CARDIAC ENZYMES NEGATIVE. WILL BE NPO AFTER MIDNIGHT FOR LEXISCAN STRESS TEST IN AM. 2D ECHO TOMORROW. AMBULATED TO BATHROOM WITH 1 ASSIST, TOLERATED WELL. VOIDING WELL. PLEASANT AND COOPERATIVE WITH CARES. Follow up:
[2016-09-28 05:33] LABS: BASOPHIL % 0.5 %; EOSINOPHIL # 0.1 K/uL (0.0-0.5); EOSINOPHIL % 0.9 %; IMMATURE GRANULOCYTE % 0.5 %; LYMPHOCYTE # 1.3 K/uL (0.8-4.0); MCH 30.6 pg (27.0-34.0); MCHC 32.4 gm/dL (32.0-36.5); MCV 94.7 fl (83.0-98.0); MONOCYTE # 0.4 K/uL (0.0-1.0); MONOCYTE % 6.7 %; MPV 10.7 fl (9.4-12.4); NEUTROPHIL # (ANC) 4.7 K/uL (1.8-7.8); NEUTROPHIL % 71.4 %; NRBC % 0 /100WBC (0-0.00); RBC 3.59 M/uL (3.50-5.50); RDW-CV 13.2 % (11.9-14.6); WBC 6.6 K/uL (4.0-11.0)
[2016-09-28 05:34] LABS: PLATELET COUNT 145 K/uL (150-450)
[2016-09-28 05:48] LABS: CPK 71 IU/L (21-215)
[2016-09-28 05:51] LABS: ALBUMIN 3.3 gm/dL (3.5-5.0); ANION GAP 9.2 (10.0-19.0); BLOOD UREA NITROGEN 16 mg/dL (6-24); CALCIUM 8.8 mg/dL (8.5-10.5); CHLORIDE 111 mMol/L (96-110); CO2 27 mMol/L (22-32); CREATININE 0.9 mg/dL (0.5-1.1); ESTIMATED GFR (MDRD EQUATION) > 60; PHOSPHORUS 3.6 mg/dL (2.5-4.9); POTASSIUM 4.2 mMol/L (3.7-5.1); SODIUM 143 mMol/L (135-145)
--- NOTE | 2016-09-28 07:01 | NUR ---
Significant Event: Patient is alert and oriented x 3. VSS on room air. HRs in the 60s-70s. SBPs in the 1 teens-130s. Afebrile. Up with stand by assist. Right groin dressing is clean, dry, and intact. Soft, slightly tender to palpate. Voiding well. Denies any pain. Right hand IV with NS running at 75 ml/hr. Became NPO at midnight. Patient is pleasant and cooperative with cares. Follow up: Marta-scan and ECHO this am
--- NOTE | 2016-09-28 08:59 | NUR ---
D:Patient to [facility] Med per wheelchair.
[2016-09-28 11:24] LABS: CPK 102 IU/L (21-215)
--- NOTE | 2016-09-28 14:21 | NUR ---
Introduced self and role of care management to patient and . They live in [place]. She states that she is able to do all her own ADL's. Her states that he does assist if needed. They plan on her returning home on discharge. She denies any needs at this time. Will continue to follow.
--- NOTE | 2016-09-28 17:19 | NUR ---
Significant Event: A/Ox3. [id number]. P-60-70s. Afebrile. Room air. L) wrist Iv saline locked. R) groin angiograph site dressed with gauze and tagaderm C/D/I. Positive stress test today. Plan is for patient to have a heart cath in the AM. NPO after midnight. Permits signed, patient needs groin prepped still. Up adlib. Denes SOB and chest pain.
--- NOTE | 2016-09-29 03:15 | NUR ---
Significant Event: Patient is alert and orientated x3. VSS on room air. HRs in 60s. SBPs in 140s-160s. Afebrile. Denies pain. Up independtly in room. R) groin angiogram dressing is C/D/I. Dressed with gauze and teagderm. R) wrist IV saline locked. NPO since midnight. Follow-up: Heart cath this AM.
[2016-09-29 03:58] LABS: BASOPHIL # 0.1 K/uL (0.0-0.2); BASOPHIL % 0.6 %; EOSINOPHIL # 0.2 K/uL (0.0-0.5); EOSINOPHIL % 2.5 %; HEMOGLOBIN 11.7 g/dL (10.0-15.0); IMMATURE GRANULOCYTE % 0.3 %; LYMPHOCYTE # 1.7 K/uL (0.8-4.0); LYMPHOCYTE % 22.5 %; MCH 30.4 pg (27.0-34.0); MCHC 32.5 gm/dL (32.0-36.5); MCV 93.5 fl (83.0-98.0); MONOCYTE # 0.5 K/uL (0.0-1.0); MONOCYTE % 6.5 %; MPV 10.3 fl (9.4-12.4); NEUTROPHIL # (ANC) 5.2 K/uL (1.8-7.8); NEUTROPHIL % 67.6 %; NRBC % 0 /100WBC (0-0.00); PLATELET COUNT 154 K/uL (150-450); RBC 3.85 M/uL (3.50-5.50); RDW-CV 13.1 % (11.9-14.6); WBC 7.7 K/uL (4.0-11.0)
[2016-09-29 04:09] LABS: PROTIME 10.6 SECONDS (9.6-11.1); PTT 27 SECONDS (25-32)
[2016-09-29 04:47] LABS: ALBUMIN 3.6 gm/dL (3.5-5.0); ANION GAP 12.9 (10.0-19.0); CALCIUM 9.1 mg/dL (8.5-10.5); POTASSIUM 3.9 mMol/L (3.7-5.1); TOTAL BILIRUBIN 0.5 mg/dL (0.0-1.5); TOTAL PROTEIN 6.8 g/dL (6.0-8.4)
--- NOTE | 2016-09-29 16:39 | NUR ---
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 Room air. Three 2 second pauses early this am, asymptomatic, Dr Lucio aware. Diarheea this am, which patient states is chronic in nature, 2 Lamotil given. Bowel sounds hypoactive. Bilat groin sites look good, R) is covered with dressing that is C/D/I. Pulses palpable to feet bilat. Loosening R-band to R) radial site at this time. Pleasant and cooperative. Follow up: Plan is for CABG tomorrow am. Flexiseal to be inserted early in morning, prior to surgery.
[2016-09-29 17:29] LABS: BILIRUBIN URINE NEGATIVE (NEGATIVE); BLOOD URINE NEGATIVE /UL (NEGATIVE); COLOR URINE YELLOW (YELLOW); GLUCOSE URINE NEGATIVE (NEGATIVE); KETONE URINE NEGATIVE (NEGATIVE); LEUKOCYTES URINE 25 /UL (NEGATIVE); NITRITE URINE POSITIVE (NEGATIVE); PROTEIN URINE NEGATIVE (NEGATIVE); TURBIDITY URINE 1+ (CLEAR); UROBILINOGEN URINE NORMAL (NORMAL)
[2016-09-29 17:48] LABS: BACTERIA URINE MANY (NEGATIVE); EPITHELIAL URINE 0-2 #/HPF (NEGATIVE); RBC URINE 0-2 #/HPF (NEGATIVE)
--- NOTE | 2016-09-30 05:37 | NUR ---
Significant Event: A/O, SBP 140-160s, HR 70-90s, RA, afebrile, Bicarb started at 0000 running at 50ml/hr, prepped for CABG this am, flexiseal placed at 0530, no c/o pain, R)radial cath site soft,nontender, csm wnl, calm/cooperative with cares Follow up: CABG today
[2016-09-30 12:25] LABS: HEMATOCRIT 29.9 % (33.0-46.0); MCH 30.6 pg (27.0-34.0); MCHC 33.4 gm/dL (32.0-36.5); MCV 91.4 fl (83.0-98.0); MPV 9.9 fl (9.4-12.4); RBC 3.27 M/uL (3.50-5.50); RDW-CV 13.1 % (11.9-14.6); WBC 6.9 K/uL (4.0-11.0)
[2016-09-30 12:38] LABS: INR - (THERAPEUTIC) 1.4 (0.9-1.1); PLATELET COUNT 105 K/uL (150-450); PROTIME 14.9 SECONDS (9.6-11.1); PTT 44 SECONDS (25-32)
[2016-09-30 13:25] LABS: BICARBONATE 23.7 mmol/L (18.0-23.0); PCO2 44 mmHg (35-45); PO2 187 mmHg (80-90)
[2016-09-30 13:28] LABS: ALPHA ANGLE 65 degrees; CLOT FORMATION TIME 130 seconds; CLOTTING TIME 185 seconds; MAXIMUM CLOT FIRMNESS 51 mm; MAXIMUM LYSIS 0 %
[2016-09-30 13:29] LABS: ALPHA ANGLE 63 degrees (70-81); CLOTTING TIME 108 seconds (43-82); MAXIMUM CLOT FIRMNESS 52 mm (51-72)
[2016-09-30 13:49] LABS: ANION GAP 17.5 (10.0-19.0); CALCIUM 8.6 mg/dL (8.5-10.5); CREATININE 1.1 mg/dL (0.5-1.1)
[2016-09-30 13:50] LABS: POTASSIUM 3.5 mMol/L (3.7-5.1)
[2016-09-30 15:21] LABS: BICARBONATE 28.5 mmol/L (18.0-23.0); PCO2 35 mmHg (35-45); PO2 420 mmHg (80-90)
[2016-09-30 15:22] LABS: POTASSIUM 3.1 mEq/L (3.7-5.1); SODIUM 141 mEq/L (135-145)
[2016-09-30 15:26] LABS: PCO2 44 mmHg (35-45); PO2 277 mmHg (80-90)
[2016-09-30 15:27] LABS: SODIUM 138 mEq/L (135-145)
[2016-09-30 15:32] LABS: BICARBONATE 26.5 mmol/L (18.0-23.0); PCO2 39 mmHg (35-45); PO2 302 mmHg (80-90); POTASSIUM 4.4 mEq/L (3.7-5.1); SODIUM 139 mEq/L (135-145)
[2016-09-30 15:33] LABS: PCO2 42 mmHg (35-45); PO2 315 mmHg (80-90)
[2016-09-30 15:34] LABS: BICARBONATE 25.4 mmol/L (18.0-23.0)
[2016-09-30 15:36] LABS: BICARBONATE 23.7 mmol/L (18.0-23.0); PCO2 39 mmHg (35-45); PO2 427 mmHg (80-90)
[2016-09-30 15:36] LABS: POTASSIUM 3.8 mEq/L (3.7-5.1); SODIUM 140 mEq/L (135-145)
[2016-09-30 15:37] LABS: POTASSIUM 3.3 mEq/L (3.7-5.1); SODIUM 141 mEq/L (135-145)
--- NOTE | 2016-09-30 16:44 | NUR ---
Significant Event: Patient was admitted to ICU from OR at 1256. She was extubated at 1345. She was having a lot of pain at first, but has been resting well this afternoon. She recieved a total of 6mg of Morphine IVP. She will not take sips of water yet so no PO medication has been given yet. She got up to the chair with 2 assist to stand and 1 person to move furniture. Getting up to the chair helped with comfort. Cardiac indexes have remained >2.2 since she arrived. CVP is not reading well and running low. 5% Albumin 500ml was given X1 for systolic blood pressure upper 80's. Chest tube output was only 250ml. Urine ouput has been adequate. Follow up: Continue to monitor
--- NOTE | 2016-09-30 17:02 | NUR ---
Weaning parameters met, NIF -35, VC 1030. Pt extubated at 1345 to 5L NC, started Alb/ezpap. Weaned O2 to 3L.
[2016-10-01 03:51] LABS: BICARBONATE 27.9 mmol/L (18.0-23.0); PCO2 45 mmHg (35-45); PO2 75 mmHg (80-90)
[2016-10-01 04:10] LABS: ANION GAP 11.7 (10.0-19.0); CALCIUM 8.3 mg/dL (8.5-10.5); POTASSIUM 3.7 mMol/L (3.7-5.1)
[2016-10-01 04:20] LABS: HEMATOCRIT 28.6 % (33.0-46.0); HEMOGLOBIN 9.5 g/dL (10.0-15.0); MCHC 33.2 gm/dL (32.0-36.5); MCV 90.2 fl (83.0-98.0); MPV 10.7 fl (9.4-12.4); RBC 3.17 M/uL (3.50-5.50); RDW-CV 13.6 % (11.9-14.6); WBC 10.1 K/uL (4.0-11.0)
--- NOTE | 2016-10-01 07:36 | NUR ---
Significant Event: Pt a/o x3. Follows commands. Conversational when awake. Drowsy. Dillon given x3, 1 tab each time d/t drowsiness. Morphine given x1. Levophed gtt weaned off. Pt did become hypertensive this am, Nitro gtt started this am at 15mcg/min. Pt taking ice chips ok, but has been nauseated on/off through the night. No emesis. Pt does have a rectal tube in place. No output. Shrestha cath patent. Marginal uop towards the am. K+ 3.5 this am, replaced with 20KCL. R)IJ patent, L)arterial line patent. Albumin given x1 for low CVP. Follow up: Transfer to PCU?
--- NOTE | 2016-10-01 09:11 | NUR ---
A - PT SCREENED D/T LOS. CONSULT RECEIVED D/T CABG. NAUSEA. FLEXISEAL D/T CHRONIC DIARRHEA. HX OF GASTRECTOMY & DUMPING SYNDROME. HT: 62" WT: 115# BMI: 21.0 LABS: ACCUCHECK 62-REAS, NA 146, PREALB 22 MEDS: PEPCID, BOWEL/NAUSEA, KCL, D5LR, LASIX, INSULIN DIET: DIABETIC, 2000 ML FLUID. INTAKE: GOOD PRIOR TO CABG, NO INTAKE REPORTED SINCE CABG. NEEDS: [id number] KCAL (25-30 KCAL/KG), 52-62 G PRO (1-1.2 G/KG) 2000 ML FLUID (PER MD) D - INCREASED PRO NEEDS R/T HEALING AEB RECENT CABG. I - GOAL FOR INTAKE > 50% BY NEXT ASSESSMENT. WILL ADD GLUCERNA @ B TO INC PRO INTAKE FOR HEALING. WILL PROVIDE DIET ED PRIOR TO DC APPROPRIATE M/E - WILL MONITOR INTAKE WILL F/U IN 3-4 DAYS.
--- NOTE | 2016-10-01 17:41 | NUR ---
Significant Event: CARDIO: Nitroglycerin gtt off at 1400. Afebrile. No edema. SBP 130s. HR 80s. Sinus rhythm. RESP: Room air SaO2 95%. GI/: Flexiseal removed. Poor appetite. Adequate urine output. Lasix given today.
[2016-10-02 06:37] LABS: HEMATOCRIT 33.4 % (33.0-46.0); MCH 30.7 pg (27.0-34.0); MCHC 32.9 gm/dL (32.0-36.5); MCV 93.3 fl (83.0-98.0); MPV 10.9 fl (9.4-12.4); RBC 3.58 M/uL (3.50-5.50); RDW-CV 13.9 % (11.9-14.6)
[2016-10-02 06:50] LABS: ANION GAP 9.5 (10.0-19.0); CALCIUM 9.1 mg/dL (8.5-10.5); POTASSIUM 4.5 mMol/L (3.7-5.1)
--- NOTE | 2016-10-02 07:04 | NUR ---
Significant Event: Patient alert and oriented. Pressures [id number]/60s. Heart rates 60s. Remains on room air. Loda given x2 with relief noted. Leo patent with 250 ml urine out. Physician notified of low urine output. Chest tubes with 220 ml out. Insulin drip with hourly accuchecks. Complaints of back spasms. 2.5 mg valium given per one time physician order. Rested well throughout shift. Pleasant and cooperative with cares. Follow up: continue to monitor, needs reminders of sternal precautions.
--- NOTE | 2016-10-02 12:01 | NUR ---
Significant Event:A/O X 3, Weak, but ambulates with 1 assist, gait belt and walker. UP to chair for meals. CSM WNL. Lungs clear/diminished on room air, able to get IS up to 500 ml, needed reminded to use FV and IS. CT to suction with serosang drainage, tubes milked. Poor appetite,ate bites and sips of breakfast. Pacer wires taped intact and taped to the chest. NO nausea. BM last night. Needs reminder for sternal precautions, cardiace bra and heart hugger in use, reeducation on use of heart hugger. Pain controlled with 1 NOrco last at 0500. Refused enteric coated ASA and 625 mg of Whelcol. Transfered to PCU room 6326, TAG UR IT with Silvana. Follow up:Amublate x 3 today. Bath.
--- NOTE | 2016-10-02 16:33 | NUR ---
Significant Event: A/Ox3. [id number]. P- 70-90s. NSR. Afebrile. Room air. L)AC saline locked. Chest tube had 150ml of serosanguinous drainage prior to it being changed to lane drain. Lane drain had 20ml of serosanginous drainage. Dressing C/D/I. Insulin gtt d/c's and changed to AC/HS accuchecks. Sternum covered with mepliex dressing, C/D/I. Leo discontinued patient has voided since and had a total of 700ml/shift. Up in halls x1 with 1A assist. [place] 1 tab given at 1345 for pleural/chest pain. Valuim given at 1245 for spasms.
--- NOTE | 2016-10-03 05:21 | NUR ---
Significant Event: A/O x3. Afebrile. c/o pain spasms in left side, gave morphine x1 and norcox1. VSS on RA/1L. SBP 110-150s. LS clear/dim. 15ml out of long drain. Up w/ standby assist. Follow up: Continue to monitor per plan of care.
--- NOTE | 2016-10-03 15:28 | NUR ---
Shift summary: Patient is alert and oriented x 3. Up in halls with therapy and in room with assistance. Xray this AM. Frequent loose bowel movements this shift, which patient states is normal for her. Lomotil and Bentyl given for diarrhea and IBS. Colace held this AM per request of patient. DEVONTE drain removed this AM by Massiel Mendoza. Gauze and paper tape covering incision. Sternal incision open to air. Lungs clear and diminished to slightly coarse. Patient has poor appetite. Left AC IV saline locked. Follow up: Continue current plan of care. Check stool for c diff.
--- NOTE | 2016-10-03 15:56 | NUR ---
Reviewed Madison's chart and talked with her RN for the day. RN tells me that her DEVONTE drain was taken out today and she was doing well. She has been working with therapies and she anticipates that she will be able to go home in the next few days. I did stop by her room after talking with her RN but she was in the bathroom so I will try to see again at a later time. CM to continue to follow and assist.
[2016-10-04 04:07] LABS: BASOPHIL % 0.4 %; EOSINOPHIL # 0.1 K/uL (0.0-0.5); EOSINOPHIL % 1.3 %; HEMATOCRIT 30.8 % (33.0-46.0); HEMOGLOBIN 9.9 g/dL (10.0-15.0); IMMATURE GRANULOCYTE % 0.4 %; LYMPHOCYTE # 1.2 K/uL (0.8-4.0); LYMPHOCYTE % 17.7 %; MCH 30.6 pg (27.0-34.0); MCHC 32.1 gm/dL (32.0-36.5); MCV 95.1 fl (83.0-98.0); MONOCYTE # 0.6 K/uL (0.0-1.0); MONOCYTE % 8.1 %; MPV 11.2 fl (9.4-12.4); NEUTROPHIL % 72.1 %; NRBC % 0 /100WBC (0-0.00); PLATELET COUNT 126 K/uL (150-450); RBC 3.24 M/uL (3.50-5.50); RDW-CV 13.5 % (11.9-14.6); WBC 6.9 K/uL (4.0-11.0)
[2016-10-04 04:29] LABS: ALBUMIN 2.9 gm/dL (3.5-5.0); ANION GAP 11.8 (10.0-19.0); BLOOD UREA NITROGEN 16 mg/dL (6-24); CALCIUM 8.9 mg/dL (8.5-10.5); CHLORIDE 107 mMol/L (96-110); CO2 28 mMol/L (22-32); CREATININE 0.9 mg/dL (0.5-1.1); ESTIMATED GFR (MDRD EQUATION) > 60; PHOSPHORUS 2.5 mg/dL (2.5-4.9); POTASSIUM 4.8 mMol/L (3.7-5.1); SODIUM 142 mMol/L (135-145)
--- NOTE | 2016-10-04 04:35 | NUR ---
Significant Event: A/O x3. Afebrile. Denies pain. VSS on 1L. SBP 120-140s. LS clear/dim. No BM. Up with standby assist. Cooperative with cares. Follow up: Continue to monitor per plan of care.
--- NOTE | 2016-10-04 12:55 | NUR ---
A-NUTRITION F/U S/P CABG. DEVONTE DRAIN TAKEN OUT ON 10/03 VISITED W/PT RE: APPETITE/SUPPLEMENT. PT REPORTS THAT SHE DID TAKE THE GLUCERNA THIS AM, BUT SHE PREFERS CHOCOLATE. ALSO STATES THAT HER APPETITE IS NOT THAT GREAT, BUT IS IMPROVING SLOWLY. SHE WAS AGREEABLE TO TRYING GLUCERNA W/DINNER. WENT OVER IMPORTANCE OF NUTRITION FOR HEALING AND WAYS TO INCORPORATE MORE PROTEIN INTO HER MEALS. PT AND PT'S SPOUSE HAVE BEEN FOLLOWING A LOW FAT/LOW CHOLESTEROL DIET SINCE 2015, AFTER HER HAD A STENT PLACED. REVIEWED HEART HEALTHY DIET INFORMATION; WRITTEN INFORMATION ALONG WITH RD CONTACT INFORMATION LEFT WITH PT. LABS: NA 142, K+ 4.8, GLU 117, BUN 16, GLASS PRESSER 0.9, ALB 2.9 MEDS: LOMOTIL, PEPCID, NOVOLOG (MOD SS), VALIUM DIET RX: CARDIAC W/GLUCERNA QD AT BREAKFAST. PO INTAKE 25-75%; IMPROVED A SMALL AMOUNT FROM LAST F/U EST NUTR NEEDS: [id number] KCALS AND 52-62 GM PROTEIN D-AT NUTRITION RISK W/INADEQUATE ORAL INTAKE R/T DECREASED APPETITE, HX OF GASTRECTOMY/DUMPING SYNDROME AEB INTAKE RECORDS, PT REPORT. I-1)CHANGE GLUCERNA FROM QD TO BID AT BRK AND DINNER 2)FOOD DISLIKES ADDED TO COMPUTRITION M/E-GOAL: PO INTAKE >/=505 BY NEXT F/U 1)F/U PO INTAKE, SUPPLEMENT, AND POC IN 3-5 DAYS 2)ASSIST NEEDED
--- NOTE | 2016-10-04 16:49 | NUR ---
Significant event: Patient alert and oriented x 3. Up around room stand by assist. Diarrhea x 2 this shift. Two tabs of lomotil given. C diff test negative. Refused aspirin and colace this AM. Appetite poor, but improving. Lungs clear and diminished on room air. Shortness of breath with activity. Denies pain. Blood sugars WNL, no treatment. Working with cardiac rehab. Follow up: Possible discharge to home in AM. Cardiac rehab.
--- NOTE | 2016-10-05 04:42 | NUR ---
Significant Event: A/O x3. Afebrile. Denies pain. VSS on RA. Lung sounds clear/dim. Uses sternal precautions. BM x1, partly formed. Up standby assist. Cooperative with cares. Follow up: Continue to monitor per plan of care.
[2016-10-05] MEDS ORDERED: CORDARONE,PACE200 MG PO (09:55)
[2016-10-05] MEDS ORDERED: LIPITOR20 M1 PO (09:59)
[2016-10-05] MEDS ORDERED: ASPIRIN EC81 MG PO (10:00)
[2016-10-05] MEDS ORDERED: FEOSOL325 MG PO (10:24)
[2016-10-05] MEDS ORDERED: LASIX40 MG PO (10:24)
[2016-10-05] MEDS ORDERED: K-TAB 10MEQ10 MEQ PO (10:26)
[2016-10-05] MEDS ORDERED: NORCO 5-325 TA1 EACH PO (10:28)
--- NOTE | 2016-10-05 17:13 | NUR ---
PATIENT DISMISSED HOME W/ PER PRIVATE AUTO. PATIENT TRANSFERED TO CAR PER W/C BY NURSE AID. REVIEWED DISMISSAL INSTRUCTIONS AND OPEN HEART SURGERY HOME CARE INSTRUCTIONS WITH PATIENT, SHE VERBALIZED UNDERSTANDING. GAVE PATIENT INFORMATION SHEETS ON NEW MEDICATIONS, AND REINFORCED STERNAL PRECAUTIONS WHEN AT HOME. HEART HUGGER ON PATIENT, MIN ASSIST UP IN ROOM.
== END 2016-10-05 13:35 | disposition disaster alternative care site (69) | DRG 233 ==
LOC: GPCU 11:59 → GCAT 11:59 → GPCU 15:02 → GCAT 15:31 → GPCU 15:32 → GICU 15:32 → GPCU 10-02 09:44
PROVIDERS: Internal Medicine; Nurse Practitioner; Thoracic Surgery (Cardiothoracic Vascular Surgery); ADMIT Surgery Vascular Surgery
PROC: 047L34Z Dilation of Left Femoral Artery with Drug-eluting Intraluminal Device, Percutaneous Approach (ICD-10-PCS; principal; 2016-09-27)
PROC: 4A023N8 Measurement of Cardiac Sampling and Pressure, Bilateral, Percutaneous Approach (ICD-10-PCS; 2016-09-29)
PROC: B211YZZ Fluoroscopy of Multiple Coronary Arteries using Other Contrast (ICD-10-PCS; 2016-09-29)
PROC: 02100Z9 Bypass Coronary Artery, One Artery from Left Internal Mammary, Open Approach (ICD-10-PCS; 2016-09-30)
PROC: 021 Heart and Great Vessels, Bypass (ICD-10-PCS; 2016-09-30)
PROC: 30233N1 Transfusion of Nonautologous Red Blood Cells into Peripheral Vein, Percutaneous Approach (ICD-10-PCS; 2016-09-30)
PROC: 05HM33Z Insertion of Infusion Device into Right Internal Jugular Vein, Percutaneous Approach (ICD-10-PCS; 2016-09-30)
PROC: B543ZZA Ultrasonography of Right Jugular Veins, Guidance (ICD-10-PCS; 2016-09-30)
DX: I70.212 Atherosclerosis of native arteries of extremities with intermittent claudication, left leg (principal); I21.4 Non-ST elevation (NSTEMI) myocardial infarction; I47.2 Ventricular tachycardia; G62.9 Polyneuropathy, unspecified; I48.0 Paroxysmal atrial fibrillation; K91.1 Postgastric surgery syndromes; I10 Essential (primary) hypertension; E87.6 Hypokalemia; E78.5 Hyperlipidemia, unspecified; I25.10 Atherosclerotic heart disease of native coronary artery without angina pectoris; K58.9 Irritable bowel syndrome, unspecified; K21.9 Gastro-esophageal reflux disease without esophagitis; Z90.710 Acquired absence of both cervix and uterus; Z95.1 Presence of aortocoronary bypass graft
CPT/HCPCS: A9270; A9500; C1725; C1760; C1769; C1887; J0282; J0885; J1644; J1940; J2001; J2150; J2250; J2270; J2405; J2440; J2720; J2785; J2930; J3010; J3370; J3475; J3480; J3490; J7030; J7040; J7050; J7060; J7121; J7612; P9016; P9045; P9047

== ENCOUNTER → 2016-10-14 | Outpatient (CLI) | payer MEDICARE, BC ==
[~2016-10-14] MED LIST changes: +ASPIRIN EC81 MG PO; +CORDARONE,PACE200 MG PO; +FEOSOL325 MG PO; +K-TAB 10MEQ10 MEQ PO; +LASIX40 MG PO; +LIPITOR20 M1 PO; +NORCO 5-325 TA1 EACH PO
[2016-10-14 13:38] LABS: BASOPHIL # 0.1 K/uL (0.0-0.2); BASOPHIL % 0.8 %; EOSINOPHIL # 0.3 K/uL (0.0-0.5); EOSINOPHIL % 2.3 %; HEMOGLOBIN 13.5 g/dL (10.0-15.0); IMMATURE GRANULOCYTE # 0.1 K/uL (0.0-0.3); IMMATURE GRANULOCYTE % 0.5 %; LYMPHOCYTE # 1.7 K/uL (0.8-4.0); LYMPHOCYTE % 15.7 %; MCV 94.9 fl (83.0-98.0); MONOCYTE # 0.5 K/uL (0.0-1.0); MPV 10.1 fl (9.4-12.4); NEUTROPHIL # (ANC) 8.1 K/uL (1.8-7.8); NEUTROPHIL % 75.7 %; NRBC % 0 /100WBC (0-0.00); RDW-CV 14.6 % (11.9-14.6); WBC 10.7 K/uL (4.0-11.0)
[2016-10-14 13:42] LABS: HEMATOCRIT 42.9 % (33.0-46.0); MCH 29.9 pg (27.0-34.0); MCHC 31.5 gm/dL (32.0-36.5); PLATELET COUNT 387 K/uL (150-450); RBC 4.52 M/uL (3.50-5.50)
[2016-10-14 13:57] LABS: ALBUMIN 4.1 gm/dL (3.5-5.0); ANION GAP 12.3 (10.0-19.0); CALCIUM 9.5 mg/dL (8.5-10.5); CREATININE 1.3 mg/dL (0.5-1.1); POTASSIUM 4.3 mMol/L (3.7-5.1); TOTAL PROTEIN 7.7 g/dL (6.0-8.4)
[2016-10-14 13:58] LABS: TOTAL BILIRUBIN 0.9 mg/dL (0.0-1.5)
== END | disposition disaster alternative care site (69) ==
LOC: LNHI 13:34
PROVIDERS: Nurse Practitioner Women's Health
DX: I25.10 Atherosclerotic heart disease of native coronary artery without angina pectoris (principal); R53.83 Other fatigue